=== PATIENT | male | born 2000 | race Caucasian/White ===

== ENCOUNTER 2019-06-18 19:21 | Emergency (ER) | payer SELFPAY ==
[~2019-06-18] VITALS: Ht 175.3 cm; Wt 70.0 kg
[2019-06-18] MEDS ORDERED: SODIUM CHLORIDE FLUSH 10ML SYR IVF ONE (20:00)
[2019-06-18] MEDS ORDERED: SODIUM CHLORIDE 0.9% 1,000ML IVBOLUS ONE ×2 (20:00→21:30)
--- NOTE | 2019-06-18 20:25 | NUR ---
Patient presents to ER c/o SOB. He states he took too many scoops of preworkout. Patient states he had palpitations earlier but they have since resolved. Patient appears anxious. Respirations even and unlabored.
[2019-06-18] MEDS ORDERED: LORazepam 2 MG/ML, 1ML ONE (20:27)
[2019-06-18] MEDS ORDERED: LORazepam 2 MG/ML, 1ML IVPush ONE (20:30)
[2019-06-18 20:49] LABS: MEAN CORPUSCULAR HEMOGLOBIN 31.3 pg (27.5-34.5); MEAN CORPUSCULAR HGB CONC 33.2 g/dL (33.2-36.2); MEAN CORPUSCULAR VOLUME 94.2 fL (81-97); MEAN PLATELET VOLUME 8.6 fL (7.4-10.4); PLATELET COUNT 402 x10^3/uL (130-400); RED BLOOD COUNT 5.27 x10^6/uL (4.38-5.82); RED CELL DISTRIBUTION WIDTH 13.2 % (9.4-14.8)
[2019-06-18 20:56] LABS: ALANINE AMINOTRANSFERASE 27 U/L (12-78); ALBUMIN 4.6 g/dL (3.4-5.0); ANION GAP 12 mmol/L (5-15); CALCIUM 9.4 mg/dL (8.5-10.1); CHLORIDE 106 mmol/L (98-107); CREATININE 1.28 mg/dL (0.7-1.3)
[2019-06-18 21:00] LABS: ALKALINE PHOSPHATASE 83 U/L (45-117); BILIRUBIN,TOTAL 0.2 mg/dL (0.2-1.0); TOTAL PROTEIN 8.4 g/dL (6.4-8.2); TROPONIN I < 0.015 ng/mL (0.000-0.045)
[2019-06-18 21:05] LABS: BASOPHILS # (AUTO) 0.01 x10^3/uL (0-0.3); BASOPHILS % (AUTO) 0 % (0-1); EOSINOPHILS # (AUTO) 0.27 x10^3/uL (0-0.8); EOSINOPHILS % (AUTO) 1 % (1-7); LYMPHOCYTES # (AUTO) 1.32 x10^3/uL (1-6.1); LYMPHOCYTES % (AUTO) 5 % (22-44); MD SCAN; MONOCYTES # (AUTO) 0.77 x10^3/uL (0-1.4); MONOCYTES % (AUTO) 3 % (2-9); NEUTROPHILS # (AUTO) 22.08 x10^3/uL (1.8-8.0); NEUTROPHILS % (AUTO) 90 % (42-75)
[2019-06-18] MEDS ORDERED: POTASSIUM CHLORIDE 20 MEQ TAB.ER.PRT PO ONE (21:30)
[2019-06-18 23:06] VITALS: BP 108/54
== END 2019-06-18 23:07 | disposition home or self-care (01) ==
LOC: ED 20:25
DX: R00.2 Palpitations (principal); D72.829 Elevated white blood cell count, unspecified; T43.615A Adverse effect of caffeine, initial encounter; E87.6 Hypokalemia; R07.89 Other chest pain; F43.0 Acute stress reaction; Y92.89 Other specified places as the place of occurrence of the external cause
CPT/HCPCS: 36415; 80053; 84484; 85025; 93005; 96374; 99284; J2060; J7030